=== PATIENT | male | born 1945 | race American Indian/Alaskan Native ===

== ENCOUNTER 2019-06-30 08:01 | Inpatient (IN) | payer MEDICARE ==
[2019-06-30] MEDS ORDERED: DUONEB *Not for PRN Use IH ONE (08:41)
--- NOTE | 2019-06-30 09:02 | Emergency Department Report ---
ED General Adult HPI - General Chief complaint: Dyspnea/Respdistress Stated complaint: ALBERT Time Seen by Provider: 06/30/19 08:37 Source: patient Mode of arrival: Ambulatory Limitations: No Limitations - History of Present Illness Initial comments: This is a pleasant 73-year-old gentleman who was transported via EMS for respiratory distress. 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 They did not take an initial pulse oximetry. They provided Solu-Medrol and magnesium. They gave a neb. Patient reported that he is much improved when he arrived. He states he's been having chest tightness for the past few days associated with wheezing. It does not radiate. He does not report any pleuritic pain cough or fever. He reports no leg swelling or pain either. He states he's run out of medicine for his neb machine. He states he takes prednisone when he has it "as needed". -: days(s) Location: chest Radiation: non-radiation Quality: other (tightness associated with wheezing) Consistency: intermittent Improves with: none Worsens with: none Associated Symptoms: denies other symptoms, chest pain Treatments Prior to Arrival: none - Related Data Allergies Allergy/AdvReac Type Severity Reaction Status Date / Time No Known Allergies Allergy Verified 06/30/19 08:28 ED Review of Systems ROS: Stated complaint: ALBERT Other details as noted in HPI Constitutional: denies: chills, fever Eyes: denies: eye pain, eye discharge, vision change ENT: denies: ear pain, throat pain Respiratory: shortness of breath, wheezing. denies: cough Cardiovascular: as per HPI, chest pain. denies: palpitations Endocrine: no symptoms reported Gastrointestinal: denies: abdominal pain, nausea, diarrhea Genitourinary: denies: urgency, dysuria Musculoskeletal: denies: back pain, joint swelling, arthralgia Skin: denies: rash, lesions Neurological: denies: headache, weakness, paresthesias Psychiatric: denies: anxiety, depression Hematological/Lymphatic: denies: easy bleeding, easy bruising ED Past Medical Hx - Past Medical History Previous Medical History?: Yes Hx COPD: Yes Additional medical history: States he has a spot on his lung and biopsy has been discussed - Surgical History Past Surgical History?: No - Social History Smoking Status: Never Smoker Substance Use Type: None ED Physical Exam - General Limitations: No Limitations General appearance: alert, in no apparent distress - Head Head exam: Present: atraumatic, normocephalic - Eye Eye exam: Present: normal appearance. Absent: scleral icterus - ENT ENT exam: Present: mucous membranes moist - Neck Neck exam: Present: normal inspection - Respiratory Respiratory exam: Present: wheezes (end expiratory wheeze). Absent: normal lung sounds bilaterally, respiratory distress - Cardiovascular Cardiovascular Exam: Present: regular rate, normal rhythm. Absent: systolic murmur, diastolic murmur, rubs, gallop - GI/Abdominal GI/Abdominal exam: Present: soft, normal bowel sounds. Absent: distended, tenderness, guarding, rebound, rigid - Rectal Rectal exam: Present: deferred - Extremities Exam Extremities exam: Present: normal inspection - Back Exam Back exam: Present: normal inspection - Neurological Exam Neurological exam: Present: alert, oriented X3, CN II-XII intact. Absent: motor sensory deficit - Psychiatric Psychiatric exam: Present: normal affect, normal mood - Skin Skin exam: Present: warm, dry, intact, normal color. Absent: rash ED Course Vital Signs 06/30/19 06/30/19 06/30/19 08:42 09:10 10:50 Temperature 98 F Pulse Rate 85 Pulse Rate [ 83 Anterior Bilateral Throughout] Respiratory 19 Rate Respiratory 19 Rate [Anterior Bilateral Throughout] Blood Pressure 122/66 O2 Sat by Pulse 95 96 Oximetry - Reevaluation(s) Reevaluation #1: Clinically improved. 06/30/19 11:05 Reevaluation #2: Heart scores 5. LUIS EDUARDO risk score is 2. Patient will be admitted further evaluation of his chest tightness as well as monitoring of his COPD exacerbation. 06/30/19 11:07 ED Medical Decision Making - Lab Data Result diagrams: 06/30/19 08:51 06/30/19 08:51 Laboratory Results - last 24 hr 06/30/19 06/30/19 06/30/19 08:51 08:51 08:51 WBC 6.2 RBC 4.51 Hgb 13.3 Hct 40.4 MCV 90 MCH 30 MCHC 33 RDW 13.7 Plt Count 233 Lymph % (Auto) 15.9 [place] % (Auto) 3.5 Eos % (Auto) 2.3 Baso % (Auto) 0.3 Lymph # 1.0 L [place] # 0.2 Eos # 0.1 Baso # 0.0 Seg Neutrophils % 78.0 H Seg Neutrophils # 4.9 PT 14.0 INR 1.11 APTT 30.6 Sodium 140 Potassium 3.9 Chloride 102.9 Carbon Dioxide 30 Anion Gap 11 BUN 13 Creatinine 0.9 Estimated GFR > 60 BUN/Creatinine Ratio 14 Glucose 139 H Calcium 8.8 Magnesium 2.70 H Total Bilirubin 1.00 Direct Bilirubin 0.2 Indirect Bilirubin 0.8 AST 15 ALT 8 Alkaline Phosphatase 53 Total Creatine Kinase 88 CK-MB (CK-2) 2.5 CK-MB (CK-2) Rel Index 2.8 Troponin T < 0.010 NT-Pro-B Natriuret Pep 24.42 Total Protein 6.5 Albumin 3.4 L Albumin/Globulin Ratio 1.1 - EKG Data -: EKG Interpreted by Me EKG shows normal: sinus rhythm Rate: normal - EKG Data Interpretation: nonspecific ST-T wave jessica - Radiology Data interpreted by me: Chest x-ray consistent with advanced COPD Critical care attestation.: If time is entered above; I have spent that time in minutes in the direct care of this critically ill patient, excluding procedure time. ED Disposition Clinical Impression: Respiratory distress, COPD exacerbation Chest pain Qualifiers: Chest pain type: unspecified Qualified Code(s): R07.9 - Chest pain, unspecified Disposition: 09 OP ADMIT IP TO THIS HOSP Is pt being admited?: Yes Does the pt Need Aspirin: Yes Condition: Stable Instructions: Chronic Obstructive Pulmonary Disease (ED), Chest Pain (ED) Referrals: [facility] [Other] - 3-5 Days Forms: Accompanied Note Time of Disposition: 11:10
[2019-06-30 09:04] LABS: Basophils % (Auto) 0.3 % (0.0-1.8); Eosinophils # (Auto) 0.1 K/mm3 (0.0-0.4); Eosinophils % (Auto) 2.3 % (0.0-4.3); Hematocrit 40.4 % (35.5-45.6); Hemoglobin 13.3 gm/dl (11.8-15.2); Lymphocytes % (Auto) 15.9 % (13.4-35.0); Mean Corpuscular HGB Conc 33 % (32-34); Mean Corpuscular Volume 90 fl (84-94); Monocytes # (Auto) 0.2 K/mm3 (0.0-0.8); Monocytes % (Auto) 3.5 % (0.0-7.3); Platelet Count 233 K/mm3 (140-440); Red Blood Count 4.51 M/mm3 (3.65-5.03); Red Cell Distribution Width 13.7 % (13.2-15.2)
[2019-06-30 09:21] LABS: INR 1.11 (0.87-1.13)
--- NOTE | 2019-06-30 09:21 | XRay Report ---
CHEST 1 VIEW INDICATION: hypertension. COMPARISON: None FINDINGS: Support devices: None. Heart: Within normal limits. Lungs/Pleura: The lungs are hyperinflated consistent with underlying emphysema. There is minor linear scarring in the right upper lobe, otherwise, the lungs are clear. No pleural effusion or pneumothora x. Additional findings: None. IMPRESSION: Emphysema. Signer Name: Kojo Lopez Jr, MD Signed: 06/30/2019 9:17 AM Workstation Name: [id number]
[2019-06-30 09:24] LABS: Creatine Kinase MB 2.5 ng/mL (0.0-4.0)
[2019-06-30 09:25] LABS: Alanine Aminotransferase 8 units/L (7-56); Albumin 3.4 g/dL (3.9-5); BUN/Creatinine Ratio 14; Bilirubin,Direct 0.2 mg/dL (0-0.2); Blood Urea Nitrogen 13 mg/dL (9-20); Calcium 8.8 mg/dL (8.4-10.2); Hemolysis Index 4
[2019-06-30 09:30] LABS: Partial Thromboplastin Time 30.6 Sec. (24.2-36.6)
[2019-06-30] MEDS ORDERED: ASPIRIN PO ONE (11:11)
--- NOTE | 2019-06-30 12:10 | History and Physical Report ---
History of Present Illness Chief complaint: I been having problems breathing since i ran out of my medicine. History of present illness: 73 YO Male with COPD, Malnutrition, Lung Nodule presents to ED for evaluation. Pt states that he as experienced shortness of breath over the past 1 week with worsening symptoms over the past 2 days. Pt acknowledges shortness of breath, increased productive cough with increased production of yellow sputum, and lack of improvement with increased nebulizer therapy, chest tightness, and wheezing. EMS notified and upon arrival the patient was found to be in distress, and treated with IV steroid therapy and supplemental oxygen with improvement in therapy. Pt was subsequently transported to [facility] via private vehicle for reevaluation. Pt seen and evaluated in ED and found to have COPD Exacerbation complicated by Acute Hypoxemic Respiratory Failure, and Severe Malnutrition. Pt admitted to [facility] unit and treated with IV antibiotic therapy, and IV steroid therapy. No prior admission for review. All medication listed at time of admission has been reconciled. Past History Past Medical History: COPD, other (malnutrition, lung nodule) Past Surgical History: No surgical history, Other (reviewed) Social history: , lives with family Family history: hypertension Medications and Allergies Allergies Allergy/AdvReac Type Severity Reaction Status Date / Time No Known Allergies Allergy Verified 06/30/19 08:28 Home Medications Medication Instructions Recorded Confirmed Last Taken Type No Known Home Medications [No 06/30/19 06/30/19 Unknown History Reported Home Medications] Review of Systems Constitutional: no weight loss, no weight gain, no fever, no chills Ears, nose, mouth and throat: no ear pain, no ear discharge, no tinnitis, no decreased hearing, no nose pain, no nasal congestion, no nasal discharge Cardiovascular: no chest pain, no orthopnea, no palpitations, no rapid/irregular heart beat, no syncope Respiratory: cough, cough with sputum, excessive sputum, shortness of breath, wheezing, no respiratory infections Gastrointestinal: no abdominal pain, no nausea, no vomiting, no diarrhea, no constipation Genitourinary Male: no hematuria, no flank pain, no discharge, no urinary frequency, no urinary hesitancy, no nocturia Rectal: no pain, no incontinence, no bleeding Musculoskeletal: no neck stiffness, no shooting arm pain, no arm n umbness/tingling, no low back pain, no shooting leg pain, no leg numbness/tingling Integumentary: no rash, no pruritis, no redness, no sores, no wounds Neurological: no head injury, no transient paralysis, no paralysis, no tingling, no seizures, no tremors Psychiatric: no anxiety, no memory loss, no change in sleep habits, no sleep disturbances, no insomnia, no change in libido, no disorientation Endocrine: no cold intolerance, no heat intolerance, no polyphagia, no excessive thirst, no polyuria, no flushing, no deepening of the voice, no thyroid mass, no high blood sugars Hematologic/Lymphatic: no easy bruising, no easy bleeding, no lymphadenopathy Allergic/Immunologic: no urticaria, no allergic rhinitis, no wheezing, no persistent infections, no angioedema Exam - Constitutional Vitals: Temp Pulse Resp BP Pulse Ox 98 F 83 19 122/66 96 06/30/19 08:42 06/30/19 09:10 06/30/19 09:10 06/30/19 08:42 06/30/19 10:50 General appearance: Present: mild distress, cachectic - EENT Eyes: Present: PERRL ENT: hearing intact, clear oral mucosa - Neck Neck: Present: supple, normal ROM - Respiratory Respiratory effort: normal Respiratory: left: diminished, rhonchi - Cardiovascular Heart Sounds: Present: S1 & S2. Absent: rub, click - Extremities Extremities: pulses symmetrical, No edema Peripheral Pulses: within normal limits - Abdominal General gastrointestinal: Present: soft, non-tender, non-distended, normal bowel sounds Male genitourinary: Present: normal - Integumentary Integumentary: Present: clear, warm, dry - Musculoskeletal Musculoskeletal: gait normal, strength equal bilaterally - Psychiatric Psychiatric: appropriate mood/affect, intact judgment & insight - Neurologic Neurologic: CNII-XII intact, moves all extremities Results - Labs CBC & Chem 7: 06/30/19 08:51 06/30/19 08:51 Labs: Abnormal lab results 06/30/19 06/30/19 Range/Units 08:51 08:51 Lymph # 1.0 L (1.2-5.4) K/mm3 Seg Neutrophils % 78.0 H (40.0-70.0) % Glucose 139 H (75-100) mg/dL Magnesium 2.70 H (1.7-2.3) mg/dL Albumin 3.4 L (3.9-5) g/dL Assessment and Plan - Patient Problems (1) COPD exacerbation Current Visit: Yes Status: Acute Plan to address problem: Nebulizer therapy, supplemental oxygen, chest x ray, CT angio chest, pain control, IV antibiotic therapy, IV steroid therapy. (2) Failure respiratory Current Visit: Yes Status: Acute Qualifiers: Chronicity: acute Respiratory failure complication: hypoxia Qualified Code(s): J96.01 - Acute respiratory failure with hypoxia Plan to address problem: Supplemental oxygen, nebulizer therapy, NIPPV as clinically indicated,pulse oximetry, supportive care. (3) Lung nodule Current Visit: Yes Status: Acute Plan to address problem: CT Chest, Pt has been seen and evaluated as outpatient and is deciding whether or not he will pursue biopsy. (4) Malnutrition Current Visit: Yes Status: Acute Qualifiers: Malnutrition type: protein-calorie malnutrition Plan to address problem: Encourage increased protein intake, dietary supplementation, (5) DVT prophylaxis Current Visit: Yes Status: Acute Plan to address problem: SCD to BLE while in bed, supportive care, PT ambulatory
[2019-06-30] MEDS ORDERED: SODIUM CHLORIDE FLUSH SYRINGE 10 ML IV PRN (12:11)
[2019-06-30] MEDS ORDERED: TYLENOL PO PRN (12:11)
[2019-06-30] MEDS ORDERED: MAGNESIUM SULFATE 1 GM in NACL 0.9% 50 ML IV ONE (13:00)
[2019-06-30] MEDS ORDERED: SOLU-Medrol IV ONE (13:00)
[2019-06-30] MEDS ORDERED: ZOFRAN IV PRN (13:00)
[2019-06-30] MEDS: SODIUM CHLORIDE FLUSH SYRINGE 10 ML IV SCH ×2 (13:02→22:02)
[2019-06-30] MEDS ORDERED: ASPIRIN ONE (13:10)
--- NOTE | 2019-06-30 15:30 | Cat Scan Report ---
CTA CHEST WITH CONTRAST INDICATION : dypsnea. TECHNIQUE: Axial imaging performed through the chest, with contrast bolus timing set to maximize opa cification of the pulmonary arteries. Sagittal and coronal reformatted images. 3-plane MIP reformatte d images were obtained. All CT scans at this location are performed using CT dose reduction for ALAR A by means of automated exposure control. Omnipaque 350 100 mL of intravenous contrast administered. COMPARISON: None FINDINGS: Bolus: Contrast bolus timing is adequate. PTE: No filling defect is present to suggest PTE. Mediastinum: Heart and great vessels appear normal. No pathologic mediastinal adenopathy. Lungs: Severe emphysematous changes are identified throughout both lungs. A 1.4 cm nodular density i s identified in the right upper lobe. This has the appearance of platelike scarring on the reconstruc marlon images. A pulmonary nodule is difficult to exclude. There is no evidence for infiltrate, pleural effusion or pneumothorax. Bones: Degenerative changes in the spine with nothing acute. Upper abdomen: Limited imaging of the upper abdomen shows nothing acute. IMPRESSION: No evidence for pulmonary embolus. Severe emphysematous changes. Right upper lobe nodule as described above. Close interval follow-up is recommended. Signer Name: Kojo Lopez Jr, MD Signed: 06/30/2019 3:25 PM Workstation Name: [id number]
[2019-06-30] MEDS: SOLU-Medrol IV SCH (21:59)
[2019-07-01 04:42] LABS: Hematocrit 39.7 % (35.5-45.6); Hemoglobin 13.5 gm/dl (11.8-15.2); Mean Corpuscular HGB Conc 34 % (32-34); Mean Corpuscular Volume 88 fl (84-94); Platelet Count 226 K/mm3 (140-440); Red Cell Distribution Width 13.6 % (13.2-15.2)
[2019-07-01] MEDS: PROVENTIL IH PRN (04:57)
[2019-07-01 05:10] LABS: Alanine Aminotransferase 10 units/L (7-56); Albumin 3.4 g/dL (3.9-5); BUN/Creatinine Ratio 16; Blood Urea Nitrogen 14 mg/dL (9-20); Calcium 9.2 mg/dL (8.4-10.2); Hemolysis Index 4
[2019-07-01 07:56] LABS: Basophils % (Manual) 0 % (0.0-1.8); Eosinophils % (Manual) 0 % (0.0-4.3); Total Cells Counted 100
[2019-07-01 07:57] LABS: Anisocytosis Few; Ovalocytes Few; Platelet Estimate Consistent w Auto
[2019-07-01] MEDS: SOLU-Medrol IV SCH ×2 (09:26→21:30)
[2019-07-01] MEDS: SODIUM CHLORIDE FLUSH SYRINGE 10 ML IV SCH ×2 (09:26→21:29)
[2019-07-01] MEDS: ZITHROMAX 500 MG in NACL 0.9% 250ML 250 ML IV SCH (09:26)
--- NOTE | 2019-07-01 12:10 | Progress Note ---
Assessment and Plan 1) COPD exacerbation Current Visit: Yes Status: Acute Plan to address problem: Nebulizer therapy, supplemental oxygen, chest x ray, CT angio chest, pain control, IV antibiotic therapy, IV steroid therapy. (2 espiratory Failure Current Visit: Yes Status: Acute Qualifiers: Chronicity: acute Respiratory failure complication: hypoxia Qualified Code(s): J96.01 - Acute respiratory failure with hypoxia Plan to address problem: Supplemental oxygen, nebulizer therapy, NIPPV as clinically indicated,pulse oximetry, supportive care. (3) Lung nodule Current Visit: Yes Status: Acute Plan to address problem: CT Chest, Pti has been seen and evaluated as outpatient and is deciding whether or not he will pursue biopsy. (4) Malnutrition Current Visit: Yes Status: Acute Qualifiers: Malnutrition type: protein-calorie malnutrition Plan to address problem: Encourage increased protein intake, dietary supplementation, (5) DVT prophylaxis Current Visit: Yes Status: Acute Plan to address problem: SCD to BLE while in bed, supportive care, PT ambulatory Subjective Date of service: 07/01/19 Principal diagnosis: Acute respiratory failue Interval history: 73 YO Male with COPD, Malnutrition, Lung Nodule presents to ED for evaluation. Pt states that he as experienced shortness of breath over the past 1 week with worsening symptoms over the past 2 days. Pt acknowledges shortness of breath, increased productive cough with increased production of yellow sputum, and lack of improvement with increased nebulizer therapy, chest tightness, and wheezing. EMS notified and upon arrival the patient was found to be in distress, and treated with IV steroid therapy and supplemental oxygen with improvement in therapy. Pt was subsequently transported to [facility] via private vehicle for reevaluation. Pt seen and evaluated in ED and found to have COPD Exacerbation complicated by Acute Hypoxemic Respiratory Failure, and Severe Malnutrition. Pt admitted to [facility] unit and treated with IV antibiotic therapy, and IV steroid therapy. Objective - Constitutional Vitals: Vital Signs - 12hr 07/01/19 07/01/19 07/01/19 01:07 03:12 04:59 Temperature 98.8 F Pulse Rate 89 Pulse Rate [ 96 H Anterior Bilateral Throughout] Respiratory 18 Rate Respiratory 18 Rate [Anterior Bilateral Throughout] Blood Pressure 99/63 O2 Sat by Pulse Oximetry 07/01/19 07/01/19 07:20 09:09 Temperature 98.9 F Pulse Rate 94 H Pulse Rate [ Anterior Bilateral Throughout] Respiratory 18 Rate Respiratory Rate [Anterior Bilateral Throughout] Blood Pressure 104/71 O2 Sat by Pulse 100 99 Oximetry General appearance: Present: no acute distress, mild distress, well-nourished - EENT Eyes: PERRL, EOM intact ENT: hearing intact, clear oral mucosa Ears: bilateral: normal - Neck Neck: supple, normal ROM - Respiratory Respiratory effort: normal Respiratory: bilateral: CTA, rhonchi, wheezing - Breasts Breasts: normal - Cardiovascular Rhythm: regular Heart Sounds: Present: S1 & S2. Absent: gallop, rub Extremities: pulses intact, No edema, normal color, Full ROM - Gastrointestinal General gastrointestinal: Present: soft, non-tender, non-distended, normal bowel sounds - Genitourinary Male genitourinary: normal - Integumentary Integumentary: clear, warm, dry - Musculoskeletal Musculoskeletal: 1, strength equal bilaterally - Neurologic Neurologic: moves all extremities - Psychiatric Psychiatric: memory intact, appropriate mood/affect, intact judgment & insight - Labs CBC & Chem 7: 07/01/19 04:15 07/01/19 04:15 Labs: Abnormal lab results 07/01/19 07/01/19 Range/Units 04:15 04:15 WBC 11.4 H (4.5-11.0) K/mm3 Seg Neuts % (Manual) 90.0 H (40.0-70.0) % Lymphocytes % (Manual) 6.0 L (13.4-35.0) % Seg Neutrophils # Man 10.3 H (1.8-7.7) K/mm3 Lymphocytes # (Manual) 0.7 L (1.2-5.4) K/mm3 Glucose 129 H (75-100) mg/dL Albumin 3.4 L (3.9-5) g/dL
[2019-07-02] MEDS: PROVENTIL IH PRN (07:29)
[2019-07-02] MEDS: SOLU-Medrol IV SCH (09:59)
[2019-07-02] MEDS: SODIUM CHLORIDE FLUSH SYRINGE 10 ML IV SCH (09:59)
[2019-07-02] MEDS: ZITHROMAX 500 MG in NACL 0.9% 250ML 250 ML IV SCH (10:25)
--- NOTE | 2019-07-02 12:54 | Discharge Summary ---
Providers - Providers Date of Admission: 06/30/19 12:11 Attending physician: RYNE LEAL MD 06/30/19 17:25 Physical Therapy Evaluation and Treat [CONS] Routine Comment: Reason For Exam: Weakness Hospitalization Condition: Stable Hospital course: 73M with wheezing and sob COPD exacerbation was rx with nebs, abx, steroids and chest pt, improved and dc home on steroid taper R espiratory Failure was rx with o2 and then weaned off it Lung nodule needs repeat imaging in 3 to 6 months Malnutrition Encouraged increased protein intake, dietary supplementation, Disposition: DC-01 TO HOME OR SELFCARE Time spent for discharge: 33 mins Core Measure Documentation - Palliative Care Palliative Care/ Comfort Measures: Not Applicable - Core Measures Any of the following diagnoses?: none Exam - Constitutional Vitals: Temp Pulse Resp BP Pulse Ox 98.1 F 89 18 110/69 97 07/02/19 07:37 07/02/19 07:37 07/02/19 07:37 07/02/19 07:37 07/02/19 07:37 General appearance: Present: no acute distress, well-nourished - EENT Eyes: Present: PERRL ENT: hearing intact, clear oral mucosa - Neck Neck: Present: supple, normal ROM - Respiratory Respiratory effort: normal Respiratory: bilateral: CTA - Cardiovascular Heart Sounds: Present: S1 & S2. Absent: rub, click - Extremities Extremities: pulses symmetrical, No edema Peripheral Pulses: within normal limits - Abdominal General gastrointestinal: Present: soft, non-tender, non-distended, normal bowel sounds Male genitourinary: Present: normal - Integumentary Integumentary: Present: clear, warm, dry - Musculoskeletal Musculoskeletal: gait normal, strength equal bilaterally - Psychiatric Psychiatric: appropriate mood/affect, intact judgment & insight - Neurologic Neurologic: CNII-XII intact, moves all extremities Plan Follow up with: [facility]Other] - 3-5 Days Forms: Accompanied Note Prescriptions: Ipratropium/Albuterol Sulfate [Combivent Respimat] 1 spray IH QID #1 aer.w.adap Prednisone [predniSONE 5 mg (6-Day Pack, 21 Tabs)] 5 mg PO .TAPER #1 tab.ds.pk Azithromycin [Zithromax TAB] 1 tab PO DAILY #3
[2019-07-02 14:37] VITALS: BP 95/66
== END 2019-07-02 15:13 | disposition home or self-care (01) | DRG 189 ==
LOC: ED 08:01 → 2B-ACE 12:11
PROVIDERS: ADMIT Internal Medicine; ATTEND Internal Medicine
DX: J96.01 Acute respiratory failure with hypoxia (principal); E43 Unspecified severe protein-calorie malnutrition; J44.1 Chronic obstructive pulmonary disease with (acute) exacerbation; Z68.1 Body mass index [BMI] 19.9 or less, adult; R91.1 Solitary pulmonary nodule; Z82.49 Family history of ischemic heart disease and other diseases of the circulatory system
CPT/HCPCS: 36415; 71045; 71275; 80048; 80053; 80076; 82550; 82553; 83735; 83880; 84484; 85007; 85025; 85610; 85730; 93005; 93010; 94640; 94644; 94760; 96365; 96375; G0378; J0456; J2920; J3475; J7050; Q9967

== ENCOUNTER 2021-03-26 15:52 | Inpatient (IN) | payer MEDICARE ==
[2021-03-26] MEDS ORDERED: ASPIRIN 325 MG TAB PO ONE (16:13)
--- NOTE | 2021-03-26 16:44 | XRay Report ---
CHEST 2 VIEWS INDICATION / CLINICAL INFORMATION: CP/ALBERT. COMPARISON: 06/30/2019 FINDINGS: SUPPORT DEVICES: None. HEART / MEDIASTINUM: No significant abnormality. LUNGS / PLEURA: Moderate emphysema. Chronic bronchiectasis/scarring right upper lobe. No pneumothorax . ADDITIONAL FINDINGS: No significant additional findings. IMPRESSION: 1. No acute findings. Signer Name: Paco Rubio MD Signed: 03/26/2021 4:39 PM Workstation Name: [id number]
[2021-03-26 16:54] LABS: Basophils % (Auto) 0.3 % (0.0-1.8); Eosinophils # (Auto) 0.2 K/mm3 (0.0-0.4); Eosinophils % (Auto) 4.1 % (0.0-4.3); Hemoglobin 12.3 gm/dl (11.8-15.2); Lymphocytes # (Auto) 0.8 K/mm3 (1.2-5.4); Lymphocytes % (Auto) 17.6 % (13.4-35.0); Mean Corpuscular HGB Conc 34 % (32-34); Mean Corpuscular Volume 93 fl (84-94); Monocytes # (Auto) 0.3 K/mm3 (0.0-0.8); Monocytes % (Auto) 6.6 % (0.0-7.3); Platelet Count 135 K/mm3 (140-440); Red Blood Count 3.86 M/mm3 (3.65-5.03); Red Cell Distribution Width 14.8 % (13.2-15.2)
[2021-03-26 17:19] LABS: Alanine Aminotransferase 12 units/L (7-56); Albumin 3.2 g/dL (3.9-5); Blood Urea Nitrogen 9 mg/dL (9-20); Calcium 8.6 mg/dL (8.4-10.2); Hemolysis Index 8
[2021-03-26 17:23] LABS: BUN/Creatinine Ratio 13
--- NOTE | 2021-03-26 17:42 | Event Note ---
ED Screening Note Date of service: 03/26/21 Time: 17:40 ED Screening Note: 75-year-old male patient with history of COPD and BPH presents to the emergency department with complaints of shortness of breath for 3 days and bilateral feet swelling starting today. Patient has oxygen at home, which he typically uses on a as needed basis. He has been placing himself on 2 L of oxygen per nasal cannula more frequently than usual over the last 3 days. Patient states he has never experienced issues with swelling in his feet before. General: Awake, appropriately interactive, no acute distress. Neck: Supple. Full range of motion intact. Cardiovascular: Normal peripheral perfusion. Pulmonary: No respiratory distress. Diminished air movement. Expiratory wheezing throughout. Skin: No apparent rashes or lesions. Neurological: No facial asymmetry. Speech is clear. Follows commands. Patient is alert and oriented. Musculoskeletal: Moves all four extremities spontaneously with normal range of motion. Psych: Cooperative. Appropriate mood and affect. I have greeted and performed a focused rapid initial assessment of this patient. A comprehensive ED assessment and evaluation of the patient, analysis of all test results, and completion of the medical decision-making process will be cond ucted by additional ED providers. This initial assessment/diagnostic orders/clinical plan/treatment(s) is/are subject to change based on patients health status, clinical progression and re-assessment. Further treatment and workup at subsequent clinical provider's discretion. Patient/guardian urged not to elope from the ED as their condition may be serious if not clinically assessed and managed.
[2021-03-26] MEDS ORDERED: MAGNESIUM SULFATE 2 GM/50 ML BAG IV ONE (22:19)
[2021-03-26] MEDS ORDERED: methylPREDNISolone Sod Succinate 125 MG/2 ML INJ IV ONE (22:19)
[2021-03-26] MEDS ORDERED: IPRATROPIUM/ALBUTEROL SULFATE 3 ML AMPUL.NEB IH ONE (22:19)
--- NOTE | 2021-03-26 22:26 | Emergency Department Report ---
ED Chest Pain HPI - General Chief Complaint: Chest Pain Stated Complaint: CHEST PAIN/ANKLE SWELLING PUI?: No Time Seen by Provider: 03/26/21 22:18 Source: patient Mode of arrival: Ambulatory Limitations: No Limitations - History of Present Illness Initial Comments: Patient is a 75-year-old male who presents emergency room with complaints of shortness of breath, chest tightness, bilateral lower extremity swelling. Patient denies pain in the lower extremity. Patient states his chest tightness is better with rest and worse with exertion. Patient states the chest tightness is bilateral chest and is worse with deep breath. Patient states that his shortness of breath is better with rest and worse with exertion. Patient states he is on 2 L of oxygen. Patient states oxygen saturation is dropping every time he walks. Patient states that he is seen as low as 88%. Patient states he is 98% normally on 2 L. Patient denies fever and chills. Patient that she has a dry cough. Patient dates this feels like a COPD flareup. Patient states he ran out of his meds. Patient states been out of his meds for 2 days. Patient states he is wheezing. Patient denies recent travel. Patient denies recent international travel. Patient denies exposure to the novel coronavirus. Patient denies sick contacts. Patient denies fever and chills. Patient denies cough. Patient denies diarrhea. Patient denies coming in contact with anybody with symptoms of the novel coronavirus. MD Complaint: chest pain, other (Shortness of breath, dyspnea on exertion) -: Sudden Onset: during rest Severity: severe Quality: tightness Consistency: constant Improves With: rest Worsens With: exertion re: dyspnea. denies: nausea, vomting, diaphoresis Other Symptoms: cough, leg swelling. denies: fever, syncope, rash, acid taste in mouth, palpitations, burping Treatments Prior to Arrival: oxygen, other Aspirin use within the Past 7 Days: (0) No - Related Data On Oral Contraceptives: No Previous Rx's Medication Instructions Recorded Last Taken Type Azithromycin [Zithromax TAB] 1 tab PO DAILY #3 07/02/19 Unknown Rx Ipratropium/Albuterol Sulfate 1 spray IH QID #1 aer.w.adap 07/02/19 Unknown Rx [Combivent Respimat] Prednisone [predniSONE 5 mg (6-Day 5 mg PO .TAPER #1 tab.ds.pk 07/02/19 Unknown Rx Pack, 21 Tabs)] Allergies Allergy/AdvReac Type Severity Reaction Status Date / Time No Known Allergies Allergy Verified 06/30/19 08:28 Heart Score - HEART Score History: Slightly suspicious EKG: Normal Age: > 65 Risk factors: No known risk factors Troponin: < normal limit HEART Score: 2 - EKG Read Time Time EKG Completed: 16:06 EKG Read Time: 16:06 ED Review of Systems ROS: Stated complaint: CHEST PAIN/ANKLE SWELLING Other details as noted in HPI Constitutional: denies: chills, fever Eyes: denies: eye pain, eye discharge, vision change ENT: denies: ear pain, throat pain Respiratory: see HPI, cough, shortness of breath, SOB with exertion, SOB at rest. denies: wheezing Cardiovascular: as per HPI, chest pain, dyspnea on exertion. denies: palpitations Endocrine: no symptoms reported Gastrointestinal: denies: abdominal pain, nausea, diarrhea Genitourinary: denies: urgency, dysuria Musculoskeletal: denies: back pain, joint swelling, arthralgia Skin: denies: rash, lesions Neurological: denies: headache, weakness, paresthesias Psychiatric: denies: anxiety, depression Hematological/Lymphatic: denies: easy bleeding, easy bruising ED Past Medical Hx - Past Medical History Previous Medical History?: Yes Hx Hypertension: No Hx Heart Attack/AMI: No Hx Renal Disease: No Hx Sickle Cell Disease: No Hx Kidney Stones: No Hx COPD: Yes Additional medical history: States he has a spot on his lung and biopsy has been discussed - Surgical History Past Surgical History?: No Hx Coronary Stent: No - Family History Family history: no significant - Social History Smoking Status: Former Smoker Substance Use Type: None - Medications Home Medications: Home Medications Medication Instructions Recorded Confirmed Last Taken Type Azithromycin [Zithromax TAB] 1 tab PO DAILY #3 07/02/19 Unknown Rx Ipratropium/Albuterol Sulfate 1 spray IH QID #1 aer.w.adap 07/02/19 Unknown Rx [Combivent Respimat] Prednisone [predniSONE 5 mg (6-Day 5 mg PO .TAPER #1 tab.ds.pk 07/02/19 Unknown Rx Pack, 21 Tabs)] ED Physical Exam - General Limitations: No Limitations General appearance: alert, in distress - Head Head exam: Present: atraumatic, normocephalic - Eye Eye exam: Present: normal appearance, PERRL Pupils: Present: normal accommodation - ENT ENT exam: Present: mucous membranes dry - Neck Neck exam: Present: normal inspection - Respiratory Respiratory exam: Present: respiratory distress, wheezes, accessory muscle use, decreased breath sounds - Cardiovascular Cardiovascular Exam: Present: regular rate, normal rhythm. Absent: systolic murmur, diastolic murmur, rubs, gallop - GI/Abdominal GI/Abdominal exam: Present: soft, normal bowel sounds. Absent: distended, tenderness, guarding - Rectal Rectal exam: Present: deferred - Extremities Exam Extremities exam: Present: normal inspection, full ROM, pedal edema (Trace bilateral lower extremity edema at the ankles. No calf tenderness noted. Edema is nonpitting.). Absent: calf tenderness - Back Exam Back exam: Present: normal inspection - Neurological Exam Neurological exam: Present: alert, oriented X3, CN II-XII intact, normal gait - Psychiatric Psychiatric exam: Present: normal affect, normal mood - Skin Skin exam: Present: warm, dry, intact, normal color. Absent: rash ED Course Vital Signs 03/26/21 03/26/21 16:12 22:31 Temperature 98.2 F Pulse Rate 97 H 92 H Respiratory 18 14 Rate Blood Pressure 105/68 O2 Sat by Pulse 98 96 Oximetry - Reevaluation(s) Reevaluation #1: Patient lung sounds have improved but is still wheezing. I discussed all results with patient. I discussed plan of care with patient. Patient agrees with plan of care and admission. Patient to be admitted to the hospitalist service. 03/27/21 00:07 - Consultations Consultation #1: Hospitalist consulted for admission. Hospitalist to admit patient. 03/27/21 00:08 LUIS EDUARDO score - Luis Eduardo Score Age > 65: (1) Yes Aspirin use within the Past 7 Days: (0) No 3 or more CAD Risk Factors: (0) No 2 or more Angina events in past 24 hrs: (0) No Known CAD with more than 50% Stenosis: (0) No Elevated Cardiac Markers: (0) No ST Deviation Greater than 0.5mm: (0) No LUIS EDUARDO Score: 1 ED Medical Decision Making - Lab Data Result diagrams: 03/26/21 16:31 03/26/21 16:31 - EKG Data -: EKG Interpreted by Me EKG shows normal: sinus rhythm, axis, intervals, QRS complexes, ST-T waves Rate: normal - Radiology Data Radiology results: report reviewed, image reviewed interpreted by me: Chest x-ray: No pneumonia, no pneumothorax, no foreign body, no osseous f indings, no acute findings CHEST 2 VIEWS INDICATION / CLINICAL INFORMATION: CP/ALBERT. COMPARISON: 06/30/2019 FINDINGS: SUPPORT DEVICES: None. HEART / MEDIASTINUM: No significant abnormality. LUNGS / PLEURA: Moderate emphysema. Chronic bronchiectasis/scarring right upper lobe. No pneumothorax. ADDITIONAL FINDINGS: No significant additional findings. IMPRESSION: 1. No acute findings. - Medical Decision Making Patient is a 75-year-old male with history of COPD that presents to the ER with complaints of shortness of breath, COPD exacerbation, dyspnea on exertion, hypoxia with ambulation. Patient is on 2 L of home oxygen at home and with exe rtion his oxygen saturation checked at home is less than 90%. Patient states that he also becomes winded when he ambulates. Patient states his symptoms improved with resting. Patient ran out of his COPD medications. Patient found to have respiratory distress and wheezing. Patient given magnesium, Solu-Medrol and DuoNeb. Patient had labs done which were essentially unremarkable. Patient also complained of chest pain had a negative troponin x2. Patient's EKG shows no ST segment elevations. Patient's EKG is negative. I personally reviewed the EKG. Patient had a chest x-ray which was negative for acute findings. I personally reviewed the chest x-ray. Patient admitted to the hospital service for further evaluation treatment. Critical care time documented due to the multiple reassessments, prolonged time at the bedside, interpretation of diagnostics and labs. - Differential Diagnosis COPD exacerbation, chest pain, SOB, SANTOS, pneumonia, ACS, Critical Care Time: Yes Critical care time in (mins) excluding proc time.: 35 Critical care attestation.: If time is entered above; I have spent that time in minutes in the direct care of this critically ill patient, excluding procedure time. Critical Care Time: 35 minutes ED Disposition Clinical Impression: COPD exacerbation, SOB (shortness of breath), SANTOS (dyspnea on exertion) Failure respiratory Qualifiers: Chronicity: acute on chronic Respiratory failure complication: hypoxia Qualified Code(s): J96.21 - Acute and chronic respiratory failure with hypoxia Chest pain Qualifiers: Chest pain type: unspecified Qualified Code(s): R07.9 - Chest pain, unspecified Disposition: 09 OP ADMIT IP TO THIS HOSP Is pt being admited?: Yes Does the pt Need Aspirin: No Condition: Critical Instructions: Chronic Obstructive Pulmonary Disease (ED) Time of Disposition: 00:08
[2021-03-26 23:07] LABS: Bacteria,Urine 1+ /HPF (Negative); Bilirubin,Urine NEG (Negative); Blood,Urine NEG (Negative); Color,Urine Yellow (Yellow); Protein,Urine <15 mg/dL mg/dL (Negative); WBC,Urine < 1.0 /HPF (0.0-6.0)
[2021-03-27] MEDS ORDERED: ONDANSETRON 4 MG/2 ML INJ IV PRN (00:37)
[2021-03-27] MEDS ORDERED: ACETAMINOPHEN 325 MG TAB PO PRN ×2 (00:37→00:39)
[2021-03-27] MEDS ORDERED: NITROGLYCERIN 0.4 MG TAB SUBL SL PRN (00:39)
[2021-03-27] MEDS ORDERED: traMADol 50 MG TAB PO PRN (00:39)
--- NOTE | 2021-03-27 00:46 | History and Physical Report ---
History of Present Illness Date of examination: 03/27/21 Date of admission: 03/27/21 00:09 Chief complaint: Shortness of breath Chest pain History of present illness: 75-year-old male with past medical history of COPD, hypertension was brought to the emergency room with complaints of shortness of breath, chest tightness, bilateral lower extremity swelling for the last 3 days. Patient states the chest tightness is bilateral chest and is worse with deep breath. Patient states that his shortness of breath is better with rest and worse with exertion. Patient states he is on 2 L of oxygen. Patient states oxygen saturation is dropping every time he walks. Patient states that he is seen as low as 88%. Patient states he is 98% normally on 2 L. Patient denies fever and chills. Patient that she has a dry cough. Patient dates this feels like a COPD flareup. Patient states he ran out of his meds. Patient states been out of his meds for 2 days. Patient states he is wheezing. Patient is now chest pain-free. In the emergency room patient is found to have acute COPD exacerbation. Patient troponin is 0.010 Past History Past Medical History: COPD, hypertension Medications and Allergies Allergies Allergy/AdvReac Type Severity Reaction Status Date / Time No Known Allergies Allergy Verified 06/30/19 08:28 Home Medications Medication Instructions Recorded Confirmed Last Taken Type Azithromycin [Zithromax TAB] 1 tab PO DAILY #3 07/02/19 Unknown Rx Ipratropium/Albuterol Sulfate 1 spray IH QID #1 aer.w.adap 07/02/19 Unknown Rx [Combivent Respimat] Prednisone [predniSONE 5 mg (6-Day 5 mg PO .TAPER #1 tab.ds.pk 07/02/19 Unknown Rx Pack, 21 Tabs)] Active Meds: Active Medications Acetaminophen (Acetaminophen 325 Mg Tab) 650 mg PO Q4H PRN PRN Reason: Pain MILD(1-3)/Fever >100.5/HERNÁNDEZ Albuterol/Ipratropium (Ipratropium/Albuterol Sulfate 3 Ml Ampul.Neb) 1 ampul IH Q6HRT CECILIO Azithromycin (Azithromycin 250 Mg Tab) mg PO DAILY CECILIO; Protocol Famotidine (Famotidine 20 Mg Tab) 20 mg PO BID CECILIO Methylprednisolone Sodium Succinate (Methylprednisolone Sod Succinate 40 Mg/1 Ml Inj) 40 mg IV Q6HR CECILIO Ondansetron HCl (Ondansetron 4 Mg/2 Ml Inj) 4 mg IV Q8H PRN PRN Reason: Nausea And Vomiting Sodium Chloride (Sodium Chloride 0.9% 10 Ml Flush Syringe) 10 ml IV BID CECILIO Sodium Chloride (Sodium Chloride 0.9% 10 Ml Flush Syringe) 10 ml IV PRN PRN PRN Reason: LINE FLUSH Review of Systems Cardiovascular: shortness of breath, dyspnea on exertion Respiratory: cough, shortness of breath, dyspnea on exertion, wheezing Exam - Constitutional Vitals: Temp Pulse Resp BP Pulse Ox 98.2 F 92 H 14 105/68 96 03/26/21 16:12 03/26/21 22:31 03/26/21 22:31 03/26/21 16:12 03/26/21 22:31 General appearance: Present: no acute distress, well-nourished - EENT Eyes: Present: PERRL ENT: hearing intact, clear oral mucosa - Neck Neck: Present: supple, normal ROM - Respiratory Respiratory effort: normal Respiratory: bilateral: wheezing - Cardiovascular Heart Sounds: Present: S1 & S2. Absent: rub, click - Extremities Extremities: pulses symmetrical, No edema Peripheral Pulses: within normal limits - Abdominal General gastrointestinal: Present: soft, non-tender, non-distended, normal bowel sounds Male genitourinary: Present: normal - Integumentary Integumentary: Present: clear, warm, dry - Musculoskeletal Musculoskeletal: gait normal, strength equal bilaterally - Psychiatric Psychiatric: appropriate mood/affect, intact judgment & insight - Neurologic Neurologic: CNII-XII intact, moves all extremities HEART Score - HEART Score EKG: Normal Age: > 65 Risk factors: No known risk factors Troponin: Troponin T < 0.010 ng/mL (0.00-0.029) 03/26/21 18:58 Troponin: < normal limit Results - Labs CBC & Chem 7: 03/26/21 16:31 03/26/21 16:31 Labs: Laboratory Last Values WBC 4.3 K/mm3 (4.5-11.0) L 03/26/21 16:31 RBC 3.86 M/mm3 (3.65-5.03) 03/26/21 16:31 Hgb 12.3 gm/dl (11.8-15.2) 03/26/21 16:31 Hct 36.0 % (35.5-45.6) 03/26/21 16:31 MCV 93 fl (84-94) 03/26/21 16:31 MCH 32 pg (28-32) 03/26/21 16:31 MCHC 34 % (32-34) 03/26/21 16:31 RDW 14.8 % (13.2-15.2) 03/26/21 16:31 Plt Count 135 K/mm3 (140-440) L 03/26/21 16:31 Lymph % (Auto) 17.6 % (13.4-35.0) 03/26/21 16:31 [place] % (Auto) 6.6 % (0.0-7.3) 03/26/21 16:31 Eos % (Auto) 4.1 % (0.0-4.3) 03/26/21 16:31 Baso % (Auto) 0.3 % (0.0-1.8) 03/26/21 16:31 Lymph # (Auto) 0.8 K/mm3 (1.2-5.4) L 03/26/21 16:31 [place] # (Auto) 0.3 K/mm3 (0.0-0.8) 03/26/21 16:31 Eos # (Auto) 0.2 K/mm3 (0.0-0.4) 03/26/21 16:31 Baso # (Auto) 0.0 K/mm3 (0.0-0.1) 03/26/21 16:31 Seg Neutrophils % 71.4 % (40.0-70.0) H 03/26/21 16:31 Seg Neutrophils # 3.1 K/mm3 (1.8-7.7) 03/26/21 16:31 Sodium 144 mmol/L (137-145) 03/26/21 16:31 Potassium 3.3 mmol/L (3.6-5.0) L 03/26/21 16:31 Chloride 106.1 mmol/L (98-107) 03/26/21 16:31 Carbon Dioxide 32 mmol/L (22-30) H 03/26/21 16:31 Anion Gap 9 mmol/L 03/26/21 16:31 BUN 9 mg/dL (9-20) 03/26/21 16:31 Creatinine 0.7 mg/dL (0.8-1.3) L 03/26/21 16:31 Estimated GFR > 60 ml/min 03/26/21 16:31 BUN/Creatinine Ratio 13 % 03/26/21 16:31 Glucose 72 mg/dL (75-100) L 03/26/21 16:31 Calcium 8.6 mg/dL (8.4-10.2) 03/26/21 16:31 Total Bilirubin 1.50 mg/dL (0.1-1.2) H 03/26/21 16:31 AST 13 units/L (5-40) 03/26/21 16:31 ALT 12 units/L (7-56) 03/26/21 16:31 Alkaline Phosphatase 44 units/L (35-129) 03/26/21 16:31 Troponin T < 0.010 ng/mL (0.00-0.029) 03/26/21 18:58 NT-Pro-B Natriuret Pep 83.71 pg/mL (0-900) 03/26/21 16:31 Total Protein 5.9 g/dL (6.3-8.2) L 03/26/21 16:31 Albumin 3.2 g/dL (3.9-5) L 03/26/21 16:31 Albumin/Globulin Ratio 1.2 % 03/26/21 16:31 Urine Color Yellow (Yellow) 03/26/21 22:50 Urine Turbidity Clear (Clear) 03/26/21 22:50 Urine pH 7.0 (5.0-7.0) 03/26/21 22:50 Ur Specific [place] 1.011 (1.003-1.030) 03/26/21 22:50 Urine Protein <15 mg/dl mg/dL (Negative) 03/26/21 22:50 Urine Glucose (UA) Neg mg/dL (Negative) 03/26/21 22:50 Urine Ketones Neg mg/dL (Negative) 03/26/21 22:50 Urine Blood Neg (Negative) 03/26/21 22:50 Urine Nitrite Neg (Negative) 03/26/21 22:50 Urine Bilirubin Neg (Negative) 03/26/21 22:50 Urine Urobilinogen 2.0 mg/dL (<2.0) 03/26/21 22:50 Ur Leukocyte Esterase Neg (Negative) 03/26/21 22:50 Urine WBC (Auto) < 1.0 /HPF (0.0-6.0) 03/26/21 22:50 Urine RBC (Auto) 1.0 /HPF (0.0-6.0) 03/26/21 22:50 Urine Bacteria (Auto) 1+ /HPF (Negative) 03/26/21 22:50 - Imaging and Cardiology Chest x-ray: report reviewed Assessment and Plan VTE prophylaxis?: Chemical Plan of care discussed with patient/family: Yes - Patient Problems (1) Acute respiratory failure Current Visit: Yes Status: Acute Plan to address problem: Admit the patient to the medical floor. Oxygen via nasal cannula 3 L/min. DuoNeb nebulizer every 4 hours as needed. Solu-Medrol 40 mg IV every 6 hours. Zithromax to 50 mg p.o. daily. If needed will consult pulmonary (2) COPD exacerbation Current Visit: Yes Status: Acute Plan to address problem: Oxygen via nasal cannula 3 L/min. DuoNeb nebulizer every 4 hours as needed. Solu-Medrol 40 mg IV every 6 hours. Zithromax to 50 mg p.o. daily. If needed will consult pulmonary (3) Acute coronary syndrome Current Visit: Yes Status: Acute Plan to address problem: Aspirin 325 mg p.o. daily. Lipitor 40 mg p.o. daily. Due to the serial cardiac enzyme and lipid panel. We also order a echocardiogram. Will consult cardiology if needed. (4) Hypertension Current Visit: Yes Status: Acute Plan to address problem: Hydralazine 10 mg IV every 6 hours as needed. We will monitor the blood pressure closely (5) DVT prophylaxis Current Visit: No Status: Acute Plan to address problem: Heparin 5000 units subcu every 8 hours for DVT prophylaxis. Pepcid 20 mg p.o. twice daily for GI prophylaxis. Patient is a full code
[2021-03-27] MEDS: IPRATROPIUM/ALBUTEROL SULFATE 3 ML AMPUL.NEB IH SCH ×4 (03:30→21:30)
[2021-03-27] MEDS: methylPREDNISolone Sod Succinate 40 MG/1 ML INJ IV SCH ×4 (05:32→23:08)
[2021-03-27 06:25] LABS: Hemoglobin 12.7 gm/dl (11.8-15.2); Mean Corpuscular HGB Conc 34 % (32-34); Mean Corpuscular Volume 92 fl (84-94); Platelet Count 130 K/mm3 (140-440); Red Blood Count 4.01 M/mm3 (3.65-5.03); Red Cell Distribution Width 14.7 % (13.2-15.2)
[2021-03-27 06:34] LABS: Blood Urea Nitrogen 11 mg/dL (9-20); Calcium 8.9 mg/dL (8.4-10.2); Chol/HDL Ratio 2.19 %; HDL Cholesterol 84 mg/dL (40-59); Hemolysis Index 7; LDL Cholesterol,Direct 99 mg/dL (50-130)
[2021-03-27 06:35] LABS: BUN/Creatinine Ratio 16
--- NOTE | 2021-03-27 09:05 | Progress Note ---
Assessment and Plan Assessment and plan: -- Acute respiratory failure Current Visit: Yes Status: Acute Requiring supplemental oxygen Oxygen via nasal cannula 3 L/min. Titrate O2 sats to more than 90%, Home O2 evaluation DuoNeb nebulizer, tapering dose of Solu-Medrol 40 mg IV every 6 hours. Zithromax to 250 mg p.o. daily. Pulmonary evaluation if needed --Acute exacerbation of COPD ; Current Visit: Yes Status: Acute Oxygen via nasal cannula 3 L/min titrate O2 sats to more than 90% Nebulizers, IV steroids, IV antibiotics, supportive care. --Atypical chest pain, resolved Current Visit: Yes Status: Acute Aspirin 325 mg p.o. daily. Lipitor 40 mg p.o. daily. Serial cardiac enzymes negative, EKG nonspecific ST-T changes Echocardiogram EF 60% --Hypertension Current Visit: Yes Status: Acute Continue current antihypertensives As needed medications --Full CODE STATUS; --DVT prophylaxis Current Visit: No Status: Acute Subcu heparin We will closely monitor the patient and adjust the management as needed Plan of care reviewed with the patient and his nurse Advance care 35 minutes History Interval history: I have seen and examined the patient at the bedside this morning Patient's chart and medications reviewed Patient complains of some chest pain and shortness of breath intermittent Denies nausea vomiting Vital signs reviewed Hospitalist Physical - Constitutional Vitals: Temp Pulse Resp BP Pulse Ox 97.9 F 89 17 115/75 96 03/27/21 04:19 03/27/21 07:52 03/27/21 07:52 03/27/21 04:19 03/27/21 07:51 General appearance: Present: no acute distress, well-nourished - EENT Eyes: Present: PERRL, EOM intact - Neck Neck: Present: supple, normal ROM - Respiratory Respiratory effort: normal Respiratory: bilateral: diminished, rales, negative: rhonchi, wheezing - Cardiovascular Rhythm: regular Heart Sounds: Present: S1 & S2 - Extremities Extremities: no ischemia, No edema - Abdominal General gastrointestinal: soft, non-tender, non-distended - Integumentary Integumentary: Present: clear, warm - Psychiatric Psychiatric: appropriate mood/affect, depressed - Neurologic Neurologic: moves all extremities HEART Score - HEART Score EKG: Normal Age: > 65 Risk factors: No known risk factors Troponin: Troponin T < 0.010 ng/mL (0.00-0.029) 03/27/21 05:49 Troponin: < normal limit Results - Labs CBC & Chem 7: 03/28/21 08:49 03/28/21 08:49 Labs: Laboratory Last Values WBC 5.1 K/mm3 (4.5-11.0) 03/27/21 05:49 RBC 4.01 M/mm3 (3.65-5.03) 03/27/21 05:49 Hgb 12.7 gm/dl (11.8-15.2) 03/27/21 05:49 Hct 37.0 % (35.5-45.6) 03/27/21 05:49 MCV 92 fl (84-94) 03/27/21 05:49 MCH 32 pg (28-32) 03/27/21 05:49 MCHC 34 % (32-34) 03/27/21 05:49 RDW 14.7 % (13.2-15.2) 03/27/21 05:49 Plt Count 130 K/mm3 (140-440) L 03/27/21 05:49 Lymph % (Auto) 17.6 % (13.4-35.0) 03/26/21 16:31 [place] % (Auto) 6.6 % (0.0-7.3) 03/26/21 16:31 Eos % (Auto) 4.1 % (0.0-4.3) 03/26/21 16:31 Baso % (Auto) 0.3 % (0.0-1.8) 03/26/21 16:31 Lymph # (Auto) 0.8 K/mm3 (1.2-5.4) L 03/26/21 16:31 [place] # (Auto) 0.3 K/mm3 (0.0-0.8) 03/26/21 16:31 Eos # (Auto) 0.2 K/mm3 (0.0-0.4) 03/26/21 16:31 Baso # (Auto) 0.0 K/mm3 (0.0-0.1) 03/26/21 16:31 Seg Neutrophils % Certified Credit Counselor 03/27/21 05:49 Seg Neutrophils # 3.1 K/mm3 (1.8-7.7) 03/26/21 16:31 Sodium 143 mmol/L (137-145) 03/27/21 05:49 Potassium 4.3 mmol/L (3.6-5.0) D 03/27/21 05:49 Chloride 104.5 mmol/L (98-107) 03/27/21 05:49 Carbon Dioxide 32 mmol/L (22-30) H 03/27/21 05:49 Anion Gap 11 mmol/L 03/27/21 05:49 BUN 11 mg/dL (9-20) 03/27/21 05:49 Creatinine 0.7 mg/dL (0.8-1.3) L 03/27/21 05:49 Estimated GFR > 60 ml/min 03/27/21 05:49 BUN/Creatinine Ratio 16 % 03/27/21 05:49 Glucose 115 mg/dL (75-100) H 03/27/21 05:49 Calcium 8.9 mg/dL (8.4-10.2) 03/27/21 05:49 Total Bilirubin 1.50 mg/dL (0.1-1.2) H 03/26/21 16:31 AST 13 units/L (5-40) 03/26/21 16:31 ALT 12 units/L (7-56) 03/26/21 16:31 Alkaline Phosphatase 44 units/L (35-129) 03/26/21 16:31 Troponin T < 0.010 ng/mL (0.00-0.029) 03/27/21 05:49 NT-Pro-B Natriuret Pep 83.71 pg/mL (0-900) 03/26/21 16:31 Total Protein 5.9 g/dL (6.3-8.2) L 03/26/21 16:31 Albumin 3.2 g/dL (3.9-5) L 03/26/21 16:31 Albumin/Globulin Ratio 1.2 % 03/26/21 16:31 Triglycerides 46 mg/dL (2-149) 03/27/21 05:49 Cholesterol 184 mg/dL (50-199) 03/27/21 05:49 LDL Cholesterol Direct 99 mg/dL (50-130) 03/27/21 05:49 HDL Cholesterol 84 mg/dL (40-59) H 03/27/21 05:49 Cholesterol/HDL Ratio 2.19 % 03/27/21 05:49 Urine Color Yellow (Yellow) 03/26/21 22:50 Urine Turbidity Clear (Clear) 03/26/21 22:50 Urine pH 7.0 (5.0-7.0) 03/26/21 22:50 Ur Specific [place] 1.011 (1.003-1.030) 03/26/21 22:50 Urine Protein <15 mg/dl mg/dL (Negative) 03/26/21 22:50 Urine Glucose (UA) Neg mg/dL (Negative) 03/26/21 22:50 Urine Ketones Neg mg/dL (Negative) 03/26/21 22:50 Urine Blood Neg (Negative) 03/26/21 22:50 Urine Nitrite Neg (Negative) 03/26/21 22:50 Urine Bilirubin Neg (Negative) 03/26/21 22:50 Urine Urobilinogen 2.0 mg/dL (<2.0) 03/26/21 22:50 Ur Leukocyte Esterase Neg (Negative) 03/26/21 22:50 Urine WBC (Auto) < 1.0 /HPF (0.0-6.0) 03/26/21 22:50 Urine RBC (Auto) 1.0 /HPF (0.0-6.0) 03/26/21 22:50 Urine Bacteria (Auto) 1+ /HPF (Negative) 03/26/21 22:50 Rodriguez/IV: Voiding Method Urinal Active Medications - Current Medications Current Medications: Generic Name Dose Route Start Last Admin Trade Name Freq PRN Reason Stop Dose Admin Acetaminophen 650 mg 03/27/21 00:37 Acetaminophen 325 Mg Tab PO Q4H PRN Pain MILD(1-3)/Fever >100.5/HERNÁNDEZ Albuterol/Ipratropium 1 ampul 03/27/21 02:00 03/27/21 07:51 Ipratropium/Albuterol Sulfate 3 Ml Ampul.Neb IH 1 ampul Q6HRT [facility] Administration Aspirin 325 mg 03/28/21 10:00 Aspirin Ec 325 Mg Tab PO QDAY [facility] Atorvastatin Calcium 40 mg 03/27/21 22:00 Atorvastatin 40 Mg Tab PO QHS [facility] Azithromycin 250 mg 03/27/21 10:00 Azithromycin 250 Mg Tab PO DAILY [facility] Protocol Famotidine 20 mg 03/27/21 10:00 Famotidine 20 Mg Tab PO BID [facility] Methylprednisolone Sodium Succinate 40 mg 03/27/21 06:00 03/27/21 05:32 Methylprednisolone Sod Succinate 40 Mg/1 Ml Inj IV 40 mg Q6HR CECILIO Administration Nitroglycerin 0.4 mg 03/27/21 00:39 Nitroglycerin 0.4 Mg Tab Subl SL Q5M PRN Chest Pain Ondansetron HCl 4 mg 03/27/21 00:37 Ondansetron 4 Mg/2 Ml Inj IV Q8H PRN Nausea And Vomiting Sodium Chloride 10 ml 03/27/21 10:00 Sodium Chloride 0.9% 10 Ml Flush Syringe IV BID CECILIO Sodium Chloride 10 ml 03/27/21 00:37 Sodium Chloride 0.9% 10 Ml Flush Syringe IV PRN PRN LINE FLUSH Tramadol HCl 50 mg 03/27/21 00:39 Tramadol 50 Mg Tab PO Q6H PRN Pain, Moderate (4-6)
[2021-03-27 10:30] LABS: Total Cells Counted 100
[2021-03-27 10:31] LABS: Band Neutrophils # (Manual) 0.1 K/mm3; RBC Morphology Normal
[2021-03-27 10:32] LABS: Platelet Estimate Consistent w Auto
[2021-03-27] MEDS: FAMOTIDINE 20 MG TAB PO SCH ×2 (10:54→21:56)
[2021-03-27] MEDS: AZITHROMYCIN 250 MG TAB PO SCH (10:54)
--- NOTE | 2021-03-27 10:54 | Electrocardiograph Report ---
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
--- NOTE | 2021-03-27 10:57 | Electrocardiograph Report ---
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
--- NOTE | 2021-03-27 10:57 | Electrocardiograph Report ---
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
[2021-03-28] MEDS: methylPREDNISolone Sod Succinate 40 MG/1 ML INJ IV SCH (05:43)
[2021-03-28 06:42] VITALS: BP 137/77
[2021-03-28] MEDS: IPRATROPIUM/ALBUTEROL SULFATE 3 ML AMPUL.NEB IH SCH (08:49)
[2021-03-28 09:14] LABS: Hematocrit 36.4 % (35.5-45.6); Hemoglobin 12.4 gm/dl (11.8-15.2); Mean Corpuscular HGB Conc 34 % (32-34); Mean Corpuscular Volume 92 fl (84-94); Platelet Count 127 K/mm3 (140-440); Red Blood Count 3.98 M/mm3 (3.65-5.03); Red Cell Distribution Width 14.4 % (13.2-15.2)
[2021-03-28 09:45] LABS: Blood Urea Nitrogen 17 mg/dL (9-20); Calcium 8.7 mg/dL (8.4-10.2); Hemolysis Index 3
[2021-03-28 09:50] LABS: BUN/Creatinine Ratio 24
[2021-03-28] MEDS ORDERED: ASPIRIN EC 325 MG TAB PO SCH (10:00)
[2021-03-28] MEDS: AZITHROMYCIN 250 MG TAB PO SCH (10:14)
[2021-03-28] MEDS: FAMOTIDINE 20 MG TAB PO SCH (10:14)
--- NOTE | 2021-03-28 10:44 | Discharge Summary ---
Providers - Providers Date of Admission: 03/27/21 16:17 Date of discharge: 03/28/21 Attending physician: CURTIS GARCIA 03/27/21 Consult to Cardiac Rehabilitation [CONS] Routine Reason For Exam: Phase I Primary care physician: ORAC[facility] CONSULTANT Hospitalization Reason for admission: Acute hypoxic respiratory failure Condition: Stable Pertinent studies: Chest x-ray Hospital course: 75-year-old male patient who follows with [facility] with significant past medical history of COPD, hypertension was admitted through emergency room with worsening shortness of breath and worsening leg edema of 3 days duration. Patient was initially evaluated in the ED. findings consistent with acute exacerbation of COPD and acute hypoxic respiratory failure requiring supplemental oxygen. Patient was managed with oxygen to titrate O2 sats to more than 92%, IV Lasix IV steroids, inhalation steroids and antibiotics. Patient symptoms slowly but gradually improved, patient also had intermittent chest pressure, serial cardiac enzymes Negative, and serial EKGs findings consistent with nonspecific ST-T changes, the EKGs were read by salvage clerk. Patient symptoms slowly but gradually improved, today patient is comfortable no new complaints, denies chest pain or shortness of breath Vital signs reviewed stable, physical examination prior to discharge did not show any new findings Patient is ambulatory and tolerating oral nutrition Patient is hemodynamically and clinically stable at discharge Strongly advised to follow-up with PA laundry aid, salvage clerk and primary care physician within 1 week to 10 days or sooner if needed Patient was an ex-smoker, counseled the patient against smoking. Discharge diagnosis; --Acute hypoxic respiratory failure; Symptoms significantly improved --Acute exacerbation of COPD; Discharged on tapering dose of steroids, inhalers, antibiotics --Atypical chest pain; Serial cardiac enzymes negative, EKG nonspecific ST-T changes Enteric-coated baby aspirin, low-dose statin advised No beta-blockers in view of COPD Chest pain resolved, the salvage clerk for further evaluation --Hypertension; moderate control Continue current antihypertensive --Severe protein calorie malnutrition; BMI 14.0, hypoalbuminemia Nutrition supplements, supportive care Patient is hemodynamically and clinically stable at discharge Disposition: DC- TO HOME OR SELFCARE Final Discharge Diagnosis (Prints w/discharge instructions): Acute hypoxic respiratory failure. Acute exacerbation of COPD. Atypical chest pain. Hypertension. Severe protein calorie malnutrition Time spent for discharge: 35 min Core Measure Documentation - Palliative Care Palliative Care/ Comfort Measures: Not Applicable - Core Measures Any of the following diagnoses?: none Exam - Constitutional Vitals: Temp Pulse Resp BP Pulse Ox 98.8 F 81 18 137/77 97 03/28/21 06:11 03/28/21 08:00 03/28/21 08:00 03/28/21 06:11 03/28/21 08:52 General appearance: Present: no acute distress, well-nourished - EENT Eyes: Present: PERRL, EOM intact - Neck Neck: Present: supple, normal ROM - Respiratory Respiratory effort: normal Respiratory: bilateral: diminished, negative: rales, rhonchi, wheezing - Cardiovascular Rhythm: regular Heart Sounds: Present: S1 & S2 - Extremities Extremities: no ischemia, No edema - Abdominal General gastrointestinal: Present: soft, non-tender, non-distended, normal bowel sounds - Integumentary Integumentary: Present: clear, warm - Musculoskeletal Musculoskeletal: strength equal bilaterally, generalized weakness - Psychiatric Psychiatric: appropriate mood/affect, cooperative - Neurologic Neurologic: moves all extremities Plan Activity: advance as tolerated Diet: other (cardiac diet) Special Instructions: smoking cessation Additional Instructions: If you have worsening symptoms contact MD or go to emergency room as needed. Ad[facility] for further evaluation of your COPD negative for chest pain Follow up with: PRIMARY CARE,MD [Primary Care Provider] - 7 Days Prescriptions: Ipratropium/Albuterol Sulfate [Combivent Respimat] 1 spray IH QID #1 aer.w.adap Aspirin EC [Halfprin EC] 81 mg PO QDAY #30 tablet. AtorvaSTATin [Lipitor] 20 mg PO QHS #30 tab Famotidine [Pepcid] 20 mg PO BID #60 tablet Prednisone [predniSONE 5 mg (6-Day Pack, 21 Tabs)] 5 mg PO .TAPER #1 tab.ds.pk Albuterol Mdi (or & Nicu Only) [ProAir HFA Inhaler] 2 puff IH QID PRN #8.5 gram PRN Reason: Shortness Of Breath Azithromycin [Zithromax] 250 mg PO QDAY #2 tablet
[2021-03-28 11:21] LABS: Total Cells Counted 100
[2021-03-28 11:23] LABS: Platelet Estimate Consistent w Auto; RBC Morphology Normal
== END 2021-03-28 13:13 | disposition home or self-care (01) | DRG 189 ==
LOC: ED 15:52 → 3A 03-27 00:09 → OBSVTOIN 03-27 16:17
PROVIDERS: ADMIT Hospitalist; ATTEND Internal Medicine
DX: J96.21 Acute and chronic respiratory failure with hypoxia (principal); E43 Unspecified severe protein-calorie malnutrition; J44.1 Chronic obstructive pulmonary disease with (acute) exacerbation; I24.9 Acute ischemic heart disease, unspecified; Z68.1 Body mass index [BMI] 19.9 or less, adult; I10 Essential (primary) hypertension; Z79.899 Other long term (current) drug therapy
CPT/HCPCS: 36415; 71046; 80048; 80053; 80061; 81001; 83880; 84484; 85007; 85025; 93005; 93306; 94640; 94644; 96374; 96375; G0378; A9270-GY; J2920; J2930; J3475